=== PATIENT | male | born 1965 | race Caucasian/White ===

== ENCOUNTER 2017-05-27 18:53 | Emergency (ER) | payer OTHER ==
--- NOTE | 2017-05-27 21:10 | DIAGNOSTIC IMAGING REPORT ---
PROCEDURE: CT LUMBAR SPINE W/O CONTRAST INDICATION: PAIN TECHNIQUE: Thin slice axial CT images were obtained through the lumbar spine. Coronal and sagittal reformations were created. COMPARISON: None. FINDINGS: Five lumbar type vertebral bodies are present. Right hemilaminectomy defect at L4-5. No acute or chronic fractures. Moderately prominent osteophytes/syndesmophytes in the lower thoracic and upper lumbar spine. Mild posterior disc osteophyte complexes L2-3, L3-4, and L4-5. L1-2: Mild circumferential disc osteophyte complex. L2-3: Moderate circumferential disc osteophyte complex and moderate facet arthropathy. There is ligamentum flavum hypertrophy and likely a mild central canal stenosis. L3-4: Partial absence of the L3 spinous process. There is probably microdiskectomy change at this level. Moderate circumferential disc bulge, mild facet arthropathy, and possible bilateral foraminal narrowing. L4-5: There is a focal right paracentral disc osteophyte complex superimposed on moderate circumferential disc bulge. The soft tissue portion of this bulge extends into the right lateral recess at the disc level and probably caudal for approximately a centimeter. Disc material and potentially granulation tissue in the lateral recesses bilaterally, right much greater than left and probably causing moderate central canal stenosis. There is a right hemilaminectomy defect. There is probably a moderate right neural foraminal narrowing. L5-S1: Mild posterior disc bulge. Mild facet arthropathy. Partial ankylosis of the anterior sacroiliac joints. Trace L3 on L4 and L2 on L3 retrolisthesis. Mild L3-4 and moderate L4-5 disc height loss. Moderate scar tissue in the dorsal midline soft tissues from L3 to L5. Paraspinal soft tissues are unremarkable. No suspicious density in the central canal to suggest hemorrhage. IMPRESSION: 1. Focal right paracentral disc osteophyte complex, and possibly caudal extrusion of disc at the L4-5 level causing central canal stenosis, bilateral lateral recess narrowing, and right lateral recess obliteration. 2. Probable central canal stenosis at the L2-3 level. 3. Postsurgical changes at L3-4 and L4-5. 4. MRI is recommended. 5. Discussed with Holley Gonzalez in the emergency room.
--- NOTE | 2017-05-27 21:14 | ED NURSING NOTES ---
Clinical Report - Nurses [facility] [address] [place] [address] 05/27/2017 18:54 Patient: MIRTA SANTOS TRIAGE Triage time 19:05 May 27 2017. Acuity: LEVEL 4. Chief Complaint: BACK PAIN. 19:10 05/27/17. Alert. No acute distress. SEPSIS SCREEN: Sepsis Screen. Negative (no infection suspected/documented). BHUMI COMA SCORE: [place] Coma Scale: 15- eyes open spontaneously (4); best verbal response- oriented x 4 (5); best motor response- obeys commands (6). --19:10 Tanya Quiroz 19:10 05/27/17. BP: 152/104. HR: 69. RR: 22. O2 saturation: 97%. Temp: 98.7 F. Pain level now 08/23. --19:10 Tanya Quiroz. Weight: 68 kg stated. Height/Length: 67 inches Per Patient. BMI: 23.5. --19:09 Tanya Quiroz. Medications Lisinopril Oral 20 mg, daily. --19:08 Tanya Quiroz. Medication/allergy information source: the patient and patient's family. --19:10 Tanya Quiroz. History Arrived by private vehicle. Historian: patient. Accompanied by (POEufemia). [facility] physician [facility] Dzmvvibr-Gdzykp-Tvjcwao Navarro). This is a recurrent problem. (today is worse than it's ever been, started about 3 days ago and gets worse). ( Pt has had 3 lamenectomies-the last one was last August. Pt has history of nerve damage, is unable to see regular doctor until June. States that is "throbs" and then feels like fire.). He has had numbness, weakness, tingling,, trouble walking and extremity pain. No history of recent trauma. No fever. Treatment [employer]: Took ibuprofen. (Not taken today.). PAST MEDICAL HX: Tetanus status: up-to-date. Immunizations: up-to-date. SOCIAL HX: Heavy tobacco smoker (cigarette)- 1 pack per day. Occasional alcohol use. History of heavy drug use: marijuana. FALL RISK ASSESSMENT: Fall risk assessment completed. No fall risk identified. NUTRITIONAL RISK ASSESSMENT: The nutritional risk assessment revealed no deficiencies. FUNCTIONAL ASSESSMENT: Functional assessment: no impairments noted. LEARNING NEEDS ASSESSMENT: The learning needs assessment revealed no barriers. SKIN INTEGRITY ASSESSMENT: Skin integrity risk assessment completed. No skin integrity risk identified. --19:10 Tanya Quiroz PAST MEDICAL HX: Hypertension. --20:48 Tanya Quiroz. PROBLEMS: Substance Abuse. Otitis Media. Sinusitis. Bronchitis. URI. Cellulitis. Intervertebral Disc Disease. Sciatica. Lumbar Radiculopathy. Back Injury. Back Pain. Soft Tissue Foreign Body. Hypertension. --20:48 Tanya Quiroz. ADDITIONAL SURGERIES: Fracture Repair. Laminectomy. Peripheral Vascular Surgery. --20:48 Tanya Quiroz. Assessment The patient states feels the same. --19:10 Tanya Quiroz. Interventions ID band on patient. --19:10 Tanya Quiroz. PHYSICAL ASSESSMENT 19:11 05/27/17. Ambulatory to room. Patient gowned. GENERAL / NEURO / PSYCH: Alert. Oriented X 4. Appears in pain. He has had numbness. RESPIRATORY: Respirations not labored. Chest nontender. CVS: Capillary refill less than 2 seconds. GI / : Abdomen soft and nontender. EXTREMITIES: Limited ROM present. BACK: ( "throbbing from my groin to my back on the right side."). Normal inspection of the neck and back. Limited ROM of the back. --19:11 Tanya Quiroz. NURSING PROGRESS NOTES 19:12 05/27/17. The plan of care for this patient has been created. Neuro-vascular extremity check. Reassurance given. Two patient identifiers checked. Call light placed in reach. Side rails up x 1. Bed placed in lowest position. Brakes of bed on. Patient ready for evaluation- chart flagged and ED physician and ADDICTION NURSE notified. --19:12 Tanya Quiroz Patient transported to radiology. (19:52 May 27 2017). --20:00 Tanya Quiroz Patient returned from radiology by stretcher with tech. (20:May 27 2017). --20:02 Tanya Quiroz 20:02 05/27/17. BP: 195/98. HR: 66. RR: 20. O2 saturation: 96% on room air. Pain level now: 08/23. --20:03 Tanya Quiroz 20:23 05/27/2017 Toradol (Ketorolac Tromethamine) IM 60 mg given. Given in the right gluteus jcarlos. Allergies verified and confirmed 5 rights. (Given by ASHLY Bazzi). --20:48 Tanya Quiroz 20:28 05/27/17. Patient ID band checked for patient name: patient confirmed. Instructions provided to collect clean catch urine and patient verbalized understanding. Clean catch urine collected with return of jacob-colored clear urine; sample sent to lab for urinalysis and culture. Specimen labeled in the presence of the patient. --20:28 Rose Mary Lopez, RChely 21:19 05/27/2017 Zofran ODT (Ondansetron) PO Oral Disintegrating Tablets 4 mg given. Allergies verified and confirmed 5 rights. --21:21 Tanya Quiroz 21:21 05/27/2017 Dilaudid (HYDROmorphone HCl PF) IM 2 mg given. Given in the right deltoid. Allergies verified, confirmed 5 rights and sedative warning given to the patient and patient's family. --21:21 Tanya Quiroz 21:22 05/27/17. BP: 145/67. HR: 61. RR: 18. O2 saturation: 96% on room air. Pain level now: 05/23. --21:22 Tanya Quiroz 21:38 05/27/2017 NICODERM Topical Patch/Pad 21 mg. Applied to the right upper back. Allergies verified and confirmed 5 rights. --21:53 Tanya Quiroz 21:41 05/27/2017 Site #1 started via IV in the right forearm with an 18g angiocath, with aseptic technique and good blood return. --21:41 Tanya Quiroz 21:56 05/27/17. Reassessment after medication administered. He is calm and resting quietly. Overall patient status is improved- he states feels better. --21:56 Tanya Quiroz 22:06 05/27/2017 Site #[address] upon admission; patent, no pain and no signs of infection or infiltration; flushes easily. --22:06 Tanya Quiroz. Intake & Output Urine: 350 mL, with return of jacob-colored clear urine. --20:29 Rose Mary Lopez R.N. DISPOSITION / DISCHARGE 21:44 05/27/17. Condition at departure: improved. The goals identified in the patient's plan of care were met. Fall risk assessment completed. Risk factors identified include severe pain. Transferred to [facility]. Summary of care provided to EMS. Report was given to a nurse via a phone call. Report included patient's care, treatment, medications, reviewed medication reconcilliation, and condition (including any recent changes or anticipated changes). All questions were answered. Report was acknowledged and care was transferred. (ASHLY Olivo). Patient's personal items include, All belongings sent with pt in ambulance. --21:44 Tanya Quiroz 22:05 05/27/17. Departure time: 22:May 27 2017. Report was given to an EMT/P in person. Report included patient's care, treatment, medications, reviewed medication reconcilliation, and condition (including any recent changes or anticipated changes). All questions were answered. Report was acknowledged and care was transferred. --22:05 Tanya Quiroz. Locked/Released at 05/27/2017 22:06 by Tanya Quiroz,
--- NOTE | 2017-05-27 21:14 | ED ORDER SUMMARY ---
..... Patient: MIRTA SANTOS OrderSheet [facility] VisitID: [id number] [place] [address] 51y, M Registration Date/Time: 05/27/2017 ORDER SHEET Weight: 68.0 kg (stated) Allergies: GENERAL ORDERS: CT Lumbar Spine wo Cont Urgent (19:44 05/27/2017 HBivens A.R.N.P.) (Ack 19:44 AMcQuoid ER Tech1) (20:05 ASchmuck) CBC w Diff Urgent (19:44 05/27/2017 HBivens A.R.N.P.) (Ack 19:44 AMcQuoid ER Tech1) (19:58 ASchmuck) CMP Urgent (19:44 05/27/2017 HBivens A.R.N.P.) (Ack 19:44 AMcQuoid ER Tech1) (19:58 ASchmuck) Urine Drug Screen Urgent (19:44 05/27/2017 HBivens A.R.N.P.) (Ack 19:44 AMcQuoid ER Tech1) (20:48 ASchmuck) UA-Culture if indicated Urgent (19:44 05/27/2017 HBivens A.R.N.P.) (Ack 19:44 AMcQuoid ER Tech1) (20:48 ASchmuck) MEDICATION ORDERS: Toradol IM 60 mg (NOW) (19:56 05/27/2017 HBivens A.R.N.P.) (Ack 19:58 SRoberts R.N.) (20:48 ASchmuck) Dilaudid IM 2 mg (HIGH ALERT MEDICATION, NOW) (21:07 05/27/2017 HBivens A.R.N.P.) (Ack 21:12 ASchmuck) (21:21 ASchmuck) Zofran ODT PO 4 mg (NOW) (21:07 05/27/2017 HBivens A.R.N.P.) (Ack 21:13 ASchmuck) (21:21 ASchmuck) Nicoderm Topical 21 mg (NOW) (21:53 05/27/2017 ASchmuck verbal order read back to HBivens A.R.N.P.) (21:53 [facility]) IV FLUIDS: ORDER SHEET NOTES: [Electronically signed by Tanya Quiroz (22:06 05/27/2017)] [Electronically signed by Holley GonzalezR.N.PJovanni (23:28 05/27/2017)] [Electronically locked/signed by Tanya Quiroz (22:06 05/27/2017)]
--- NOTE | 2017-05-27 21:14 | ED ORDER SUMMARY ---
..... Patient: MIRTA SANTOS OrderSheet [facility] VisitID: [id number] [place] [address] 51y, M Registration Date/Time: 05/27/2017 ORDER SHEET Weight: 68.0 kg (stated) Allergies: GENERAL ORDERS: CT Lumbar Spine wo Cont Urgent (19:44 05/27/2017 HBivens A.R.N.P.) (Ack 19:44 AMcQuoid ER Tech1) (20:05 ASchmuck) CBC w Diff Urgent (19:44 05/27/2017 HBivens A.R.N.P.) (Ack 19:44 AMcQuoid ER Tech1) (19:58 ASchmuck) CMP Urgent (19:44 05/27/2017 HBivens A.R.N.P.) (Ack 19:44 AMcQuoid ER Tech1) (19:58 ASchmuck) Urine Drug Screen Urgent (19:44 05/27/2017 HBivens A.R.N.P.) (Ack 19:44 AMcQuoid ER Tech1) (20:48 ASchmuck) UA-Culture if indicated Urgent (19:44 05/27/2017 HBivens A.R.N.P.) (Ack 19:44 AMcQuoid ER Tech1) (20:48 ASchmuck) MEDICATION ORDERS: Toradol IM 60 mg (NOW) (19:56 05/27/2017 HBivens A.R.N.P.) (Ack 19:58 SRoberts R.N.) (20:48 ASchmuck) Dilaudid IM 2 mg (HIGH ALERT MEDICATION, NOW) (21:07 05/27/2017 HBivens A.R.N.P.) (Ack 21:12 ASchmuck) (21:21 ASchmuck) Zofran ODT PO 4 mg (NOW) (21:07 05/27/2017 HBivens A.R.N.P.) (Ack 21:13 ASchmuck) (21:21 ASchmuck) Nicoderm Topical 21 mg (NOW) (21:53 05/27/2017 ASchmuck verbal order read back to HBivens A.R.N.P.) (21:53 [facility]) IV FLUIDS: ORDER SHEET NOTES: [Electronically signed by Tanya Quiroz (22:06 05/27/2017)] [Electronically signed by Holley GonzalezR.N.PJovanni (23:28 05/27/2017)] [Electronically locked/signed by Tanya Quiroz (22:06 05/27/2017)]
--- NOTE | 2017-05-27 21:14 | ED CLINICAL REPORT ---
Clinical Report - Physicians/Mid Levels [facility] [address] [place] [address] 05/27/2017 18:54 Patient: MIRTA SANTOS Time Seen: 19:30; initial patient contact, initial documentation, patient care assumed. Arrived- By private vehicle. Historian- patient and spouse. HISTORY OF PRESENT ILLNESS Chief Complaint: BACK PAIN. It is described as being severe and in the area of the mid lumbar spine, lower lumbar spine, sacrum and coccyx. It is described as radiating to the right hip and thigh and to the left hip and thigh. The quality is noted to be "pain" and similar to prior episodes (throbs and feels like it is on fire). Modifying factors- worsened by standing, walking, rotation of the body to the right or left, bending over or lifting. Not relieved by anything. Onset- about 2 - 3 weeks ago and it is still present and worsening. (persistent 2 - 3 days ago). No bladder dysfunction, bowel dysfunction or motor loss. Sensory loss (numbness, tingling, hx of nerve damage). Additional history - can't get into his dr till Jun, last back surgery was Nov of this year, and he has been gradually getting worse since operation, numbness and tingling are worse on L. Patient denies an injury but injury to the head or neck. No other injury. Similar symptoms previously: Chronically, as bad. Recent medical care: Not recently seen/assessed. REVIEW OF SYSTEMS No fever, difficulty with urination, urinary frequency, hematuria or difficulty breathing. No chest pain, abdominal pain, vomiting or diarrhea. All systems otherwise negative, except as recorded above. PAST HISTORY See nurses notes. PROBLEMS: Substance Abuse. Otitis Media. Sinusitis. Bronchitis. URI. Cellulitis. Intervertebral Disc Disease. Sciatica. Lumbar Radiculopathy. Back Injury. Back Pain. Soft Tissue Foreign Body. Hypertension. --20:48 Tanya Quiroz. ADDITIONAL SURGERIES: Fracture Repair. Laminectomy. Peripheral Vascular Surgery. --20:48 Tanya Quiroz. SOCIAL HISTORY Heavy tobacco smoker. Occasional alcohol use. History of occasional drug use: marijuana. No recent travel. Is a local resident. FAMILY HISTORY Negative. ADDITIONAL NOTES The nursing notes have been reviewed with agreement regarding the chief complaint, HPI, ROS, PMH and patient medications and allergies. PHYSICAL EXAM Vital Signs: 05/27/2017 19:10 BP: 152/104. HR: 69. RR: 22. O2 saturation: 97%. Temp: 98.7 F. Have been reviewed as abnormal and appear to be correct. Hypertensive. Heart rate normal. Respiratory rate normal. Temperature normal. Oxygen saturation normal. Appearance: Alert. No acute distress. Anxious. (cussing and writhing around in bed). HEENT: Normal external inspection. Eyes: Pupils equal, round and reactive to light. Neck: Normal inspection. Neck nontender. Painless ROM. CVS: Heart sounds normal. Pulses normal. Respiratory: No respiratory distress. Breath sounds normal. Abdomen: No visible injury. Soft and nontender. Bowel sounds normal. No organomegaly. No mass. Back: Abnormal inspection. Back tenderness present. Mild vertebral point tenderness over the upper, mid and lower lumbar spine. Moderate soft tissue tenderness in the right upper, mid and lower, left upper, mid and lower and upper, mid and lower central lumbar area. No painless ROM. Moderately limited ROM in the back- in the lumbar spine: decreased flexion, right lateral bending, left lateral bending and rotation to the right and left. No muscle spasm in the back or CVA tenderness. Skin: Skin warm and dry. Normal skin color. No rash. Normal skin turgor. Extremities: Extremities exhibit normal ROM. Extremities nontender. Neuro: Oriented X 3. Mood/affect normal. No motor deficit. No sensory deficit. LABS, X-RAYS, AND EKG CT L-Spine: Note- IMPRESSION: 1. Focal right paracentral disc osteophyte complex, and possibly caudal extrusion of disc at the L4-5 level causing central canal stenosis, bilateral lateral recess narrowing, and right lateral recess obliteration. 2. Probable central canal stenosis at the L2-3 level. 3. Postsurgical changes at L3-4 and L4-5. 4. MRI is recommended. 5. Discussed with Holley Gonzalez in the emergency room. Electronically Final signed by:Alis Cohen MD 05/27/2017 9:10:09 PM. The study was interpreted by the radiologist and discussed with the radiologist. Interpretation time: 20:39. Laboratory Tests: UA-Culture if indicated: (MANUEL: 05/27/2017 20:20) ( MsgRcvd 05/27/2017 20:43) Final results Test Result Flag Units (Reference) URINE COLOR YELLOW URINE APPEARANCE CLEAR URINE GLUCOSE NEGATIVE (NEGATIVE) URINE BILIRUBIN NEGATIVE (NEGATIVE) URINE KETONE NEGATIVE (NEGATIVE) URINE SPECIFIC GRAVITY 1.015 (1.010-1.030) URINE PH 7.5 (5.0-8.0) URINE PROTEIN NEGATIVE (NEGATIVE) URINE UROBILINOGEN 0.2 EU/dL (0.2-1.0) URINE NITRITE NEGATIVE (NEGATIVE) URINE BLOOD NEGATIVE (NEGATIVE) URINE LEUK ESTERASE NEGATIVE (NEGATIVE) URINE RBC 0-1 rbc/hpf (0-1) URINE WBC RARE wbc/hpf (0-1) URINE EPITHELIAL CELLS RARE EPI/hpf (0-5) URINE BACTERIA NONE SEEN (NONE SEEN) URINE COMMENT CULT NOT INDICATED URINE CULTURES ARE SET-UP BASED ON THE FOLLOWING CRITERIA:POSITIVE NITRITEPOSITIVE LEUKOCYTE ESTERASEGREATER THAN 10 WHITE BLOOD CELLSMODERATE (2+) OR GREATER BACTERIA CBC w Diff: (MANUEL: 05/27/2017 19:50) ( MsgRcvd 05/27/2017 20:07) Final results Test Result Flag Units (Reference) WHITE BLOOD COUNT 9.1 K/uL (4.5-11.5) RED BLOOD COUNT 4.37 L M/uL (4.50-5.90) HEMOGLOBIN 13.2 L gm/dL (13.5-17.5) HEMATOCRIT 39.0 L % (41.0-53.0) MEAN CELL VOLUME 89 fL (80-100) MEAN CORPUSCULAR HGB 30 pg (26-34) MEAN CORPUSCULAR HGB CONC 34 g/dL (31-37) RED CELL DISTRIBUTION WIDTH 13.7 % (11.6-14.8) PLATELET COUNT 276 K/uL (150-400) NEUTROPHIL % 60.7 % (50-75) LYMPH % 29.6 % (25-40) MONO % 7.8 % (3-14) EOSINOPHIL % 1.3 % (0-4) BASOPHIL % 0.6 % (0-2) CMP: (MANUEL: 05/27/2017 19:50) ( MsgRcvd 05/27/2017 20:25) Final results Test Result Flag Units (Reference) GLUCOSE 94 mg/dL (70-110) BUN 15 mg/dL (7-18) CREATININE 0.8 mg/dL (0.6-1.3) Estimated GFR >60 mL/min Estimated GFR- >60 mL/min Note: Persistent reduction over 3 months in eGFR<60 mL/min/1.73 m2 defines CKD. Patients with eGFR values>=60 mL/min/1.73 m2 may also have CKD if evidence ofpersistent proteinuria. Additional information may be foundat www.kidney.org. SODIUM 143 mmol/L (136-145) POTASSIUM 4.1 mmol/L (3.5-5.1) CHLORIDE 106 mmol/L (98-107) CARBON DIOXIDE 28 mmol/L (21-32) CALCIUM 8.7 mg/dL (8.5-10.1) TOTAL PROTEIN 6.6 g/dL (6.4-8.2) ALBUMIN 3.9 g/dL (3.3-5.0) BILIRUBIN, TOTAL 0.3 mg/dL (0.0-1.0) ALKALINE PHOSPHATASE 68 U/L (46-116) AST (SGOT) 22 U/L (15-37) ALT (SGPT) 28 U/L (12-78) . . PROGRESS AND PROCEDURES Course of Care: pt aware of transfer, started cussing and stating he wasn't going, talking to him 2129. spoke to er Dr Spivey, aware of transfer and to call Dr Dorado when pt arrives, concerns for caudal equina and need for mri 21:35 05/27/17. transfer form completed, pt agreed to transfer ems called by [facility]. 05/27/2017 20:03 BP: 195/98. HR: 66. RR: 20. O2 saturation: 96%. Pain level now: 10/10. Vital Signs: have been reviewed as abnormal and appear to be correct. Hypertensive. Heart rate normal. Respiratory rate normal. Temperature normal. Oxygen saturation normal. Discussed case with health care provider (call placed [phone] Dr Dorado Neuro, pt's dr, do er to er transfer and have er call him when pt arrives). Reviewed test results. Agreed upon treatment plan. Health care provider will see patient in ED. Patient and spouse counseled in person regarding the patient's stable condition, test results and diagnosis. Differential Diagnosis: I considered Musculo-skeletal strain, contusion, disk protrusion, vertebral fracture, transverse-process fracture, facet syndrome, sacroiliac joint strain, sciatica, osteoarthritis, lumbar spondylosis and spinal stenosis as a possible cause of back pain in this patient. This is a partial list of diagnoses considered. Above considerations are based on history, physical exam, reassessment, laboratory data and other information. Differential diagnosis was discussed with patient. Disposition: Benefits, risks and alternatives to transfer explained to patient and family. Transferred to [facility]. 21:29. Condition: good and stable. 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 Lumbar radiculopathy present. Sciatica present on the right and left. Sensory deficit present. (Electronically signed by Holley Gonzalez A.R.N.P. 05/27/2017 23:28)
--- NOTE | 2017-05-27 21:14 | ED NURSING NOTES ---
Clinical Report - Nurses [facility] [address] [place] [address] 05/27/2017 18:54 Patient: MIRTA SANTOS TRIAGE Triage time 19:05 May 27 2017. Acuity: LEVEL 4. Chief Complaint: BACK PAIN. 19:10 05/27/17. Alert. No acute distress. SEPSIS SCREEN: Sepsis Screen. Negative (no infection suspected/documented). BHUMI COMA SCORE: [place] Coma Scale: 15- eyes open spontaneously (4); best verbal response- oriented x 4 (5); best motor response- obeys commands (6). --19:10 Tanya Quiroz 19:10 05/27/17. BP: 152/104. HR: 69. RR: 22. O2 saturation: 97%. Temp: 98.7 F. Pain level now 08/23. --19:10 Tanya Quiroz. Weight: 68 kg stated. Height/Length: 67 inches Per Patient. BMI: 23.5. --19:09 Tanya Quiroz. Medications Lisinopril Oral 20 mg, daily. --19:08 Tanya Quiroz. Medication/allergy information source: the patient and patient's family. --19:10 Tanya Quiroz. History Arrived by private vehicle. Historian: patient. Accompanied by (POEufemia). [facility]). This is a recurrent problem. (today is worse than it's ever been, started about 3 days ago and gets worse). ( Pt has had 3 lamenectomies-the last one was last August. Pt has history of nerve damage, is unable to see regular doctor until June. States that is "throbs" and then feels like fire.). He has had numbness, weakness, tingling,, trouble walking and extremity pain. No history of recent trauma. No fever. 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 (Not taken today.). PAST MEDICAL HX: Tetanus status: up-to-date. Immunizations: up-to-date. SOCIAL HX: Heavy tobacco smoker (cigarette)- 1 pack per day. Occasional alcohol use. History of heavy drug use: marijuana. FALL RISK ASSESSMENT: Fall risk assessment completed. No fall risk identified. NUTRITIONAL RISK ASSESSMENT: The nutritional risk assessment revealed no deficiencies. FUNCTIONAL ASSESSMENT: Functional assessment: no impairments noted. LEARNING NEEDS ASSESSMENT: The learning needs assessment revealed no barriers. SKIN INTEGRITY ASSESSMENT: Skin integrity risk assessment completed. No skin integrity risk identified. --19:10 Tanya Quiroz PAST MEDICAL HX: Hypertension. --20:48 Tanya Quiroz. PROBLEMS: Substance Abuse. Otitis Media. Sinusitis. Bronchitis. URI. Cellulitis. Intervertebral Disc Disease. Sciatica. Lumbar Radiculopathy. Back Injury. Back Pain. Soft Tissue Foreign Body. Hypertension. --20:48 Tanya Quiroz. ADDITIONAL SURGERIES: Fracture Repair. Laminectomy. Peripheral Vascular Surgery. --20:48 Tanya Quiroz. Assessment The patient states feels the same. --19:10 Tanya Quiroz. Interventions ID band on patient. --19:10 Tanya Quiroz. PHYSICAL ASSESSMENT 19:11 05/27/17. Ambulatory to room. Patient gowned. GENERAL / NEURO / PSYCH: Alert. Oriented X 4. Appears in pain. He has had numbness. RESPIRATORY: Respirations not labored. Chest nontender. CVS: Capillary refill less than 2 seconds. GI / : Abdomen soft and nontender. EXTREMITIES: Limited ROM present. BACK: ( "throbbing from my groin to my back on the right side."). Normal inspection of the neck and back. Limited ROM of the back. --19:11 Tanya Quiroz. NURSING PROGRESS NOTES 19:12 05/27/17. The plan of care for this patient has been created. Neuro-vascular extremity check. Reassurance given. Two patient identifiers checked. Call light placed in reach. Side rails up x 1. Bed placed in lowest position. Brakes of bed on. Patient ready for evaluation- chart flagged and ED physician and WILDLIFE BIOLOGY TECHNICIAN notified. --19:12 Tanya Quiroz Patient transported to radiology. (19:52 May 27 2017). --20:00 Tanya Quiroz Patient returned from radiology by stretcher with tech. (20:May 27 2017). --20:02 Tanya Quiroz 20:02 05/27/17. BP: 195/98. HR: 66. RR: 20. O2 saturation: 96% on room air. Pain level now: 08/23. --20:03 Tanya Quiroz 20:23 05/27/2017 Toradol (Ketorolac Tromethamine) IM 60 mg given. Given in the right gluteus jcarlos. Allergies verified and confirmed 5 rights. (Given by ASHLY Bazzi). --20:48 Tanya Quiroz 20:28 05/27/17. Patient ID band checked for patient name: patient confirmed. Instructions provided to collect clean catch urine and patient verbalized understanding. Clean catch urine collected with return of jacob-colored clear urine; sample sent to lab for urinalysis and culture. Specimen labeled in the presence of the patient. --20:28 Rose Mary Lopez, RChely 21:19 05/27/2017 Zofran ODT (Ondansetron) PO Oral Disintegrating Tablets 4 mg given. Allergies verified and confirmed 5 rights. --21:21 Tanya Quiroz 21:21 05/27/2017 Dilaudid (HYDROmorphone HCl PF) IM 2 mg given. Given in the right deltoid. Allergies verified, confirmed 5 rights and sedative warning given to the patient and patient's family. --21:21 Tanya Quiroz 21:22 05/27/17. BP: 145/67. HR: 61. RR: 18. O2 saturation: 96% on room air. Pain level now: 05/23. --21:22 Tanya Quiroz 21:38 05/27/2017 NICODERM Topical Patch/Pad 21 mg. Applied to the right upper back. Allergies verified and confirmed 5 rights. --21:53 Tanya Quiroz 21:41 05/27/2017 Site #1 started via IV in the right forearm with an 18g angiocath, with aseptic technique and good blood return. --21:41 Tanya Quiroz 21:56 05/27/17. Reassessment after medication administered. He is calm and resting quietly. Overall patient status is improved- he states feels better. --21:56 Tanya Quiroz 22:06 05/27/2017 Site #[address] upon admission; patent, no pain and no signs of infection or infiltration; flushes easily. --22:06 Tanya Quiroz. Intake & Output Urine: 350 mL, with return of jacob-colored clear urine. --20:29 Rose Mary Lopez R.N. DISPOSITION / DISCHARGE 21:44 05/27/17. Condition at departure: improved. The goals identified in the patient's plan of care were met. Fall risk assessment completed. Risk factors identified include severe pain. Transferred to [facility]. Summary of care provided to EMS. Report was given to a nurse via a phone call. Report included patient's care, treatment, medications, reviewed medication reconcilliation, and condition (including any recent changes or anticipated changes). All questions were answered. Report was acknowledged and care was transferred. (ASHLY Olivo). Patient's personal items include, All belongings sent with pt in ambulance. --21:44 Tanya Quiroz 22:05 05/27/17. Departure time: 22:May 27 2017. Report was given to an EMT/P in person. Report included patient's care, treatment, medications, reviewed medication reconcilliation, and condition (including any recent changes or anticipated changes). All questions were answered. Report was acknowledged and care was transferred. --22:05 Tanya Quiroz. Locked/Released at 05/27/2017 22:06 by Tanya Quiroz,
--- NOTE | 2017-05-27 23:28 | ED MED RECONCILIATION SUMMARY ---
Patient: MIRTA SANTOS Medication Reconciliation Report [facility] VisitID: [id number] [address] [place] [address] 51y, M Registration Date/Time: 05/27/2017 Weight: 68.0 kg Height/Length: 67 in. BMI: 23.5 ALLERGIES: The patient's Home Medications are listed below: THE FOLLOWING MEDICATIONS NEED TO BE RECONCILED: Lisinopril Oral 20 mg, daily The source(s) of the original Home Medication information: patient's family member patient The following Medications were given to the patient in the Emergency Department: Toradol [IM] IM 60 mg, administered: 05/27/2017 8:23:00 PM Dilaudid [IM] IM 2 mg, administered: 05/27/2017 9:21:00 PM Zofran ODT [PO] PO 4 mg, administered: 05/27/2017 9:19:00 PM NICODERM [TOPICAL] Topical 21 mg, administered: 05/27/2017 9:38:00 PM The following Medications were prescribed to the patient: None.
--- NOTE | 2017-05-27 23:28 | ED MAR SUMMARY ---
..... Medication Administration Record [facility] [address] [place] [address] Patient: MIRTA SANTOS Visit ID: [id number] 51y, M Weight: 68.0 kg Height/Length: 67 in BMI: 23.5 ALLERGIES: Given 20:05/27/2017 Tanya Quiroz, Medication Administered: TORADOL [IM] (KETOROLAC TROMETHAMINE), Dose: 60 mg IM. Medication Ordered: Toradol IM 60 mg (NOW). Given 21:05/27/2017 Tanya Quiroz, Medication Administered: ZOFRAN ODT [PO] (ONDANSETRON), Dose: 4 mg Oral Disintegrating Tablets PO. Medication Ordered: Zofran ODT PO 4 mg (NOW). Given 21:05/27/2017 Tanya Quiroz, Medication Administered: DILAUDID [IM] (HYDROMORPHONE HCL PF), Dose: 2 mg IM. Medication Ordered: Dilaudid IM 2 mg (HIGH ALERT MEDICATION, NOW). Given 21:05/27/2017 Tanya Quiroz, Medication Administered: NICODERM [TOPICAL], Dose: 21 mg Patch/Pad Topical. Medication Ordered: Nicoderm Topical 21 mg (NOW).
--- NOTE | 2017-05-27 23:28 | ED DISCHARGE INSTRUCTIONS ---
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 Lumbar radiculopathy present. Sciatica present on the right and left. Sensory deficit present. (Electronically signed by Holley Gonzalez A.R.N.P. 05/27/2017 23:28)
--- NOTE | 2017-05-27 23:28 | ED MAR SUMMARY ---
..... Medication Administration Record [facility] [address] [place] [address] Patient: MIRTA SANTOS Visit ID: [id number] 51y, M Weight: 68.0 kg Height/Length: 67 in BMI: 23.5 ALLERGIES: Given 20:05/27/2017 Tanya Quiroz, Medication Administered: TORADOL [IM] (KETOROLAC TROMETHAMINE), Dose: 60 mg IM. Medication Ordered: Toradol IM 60 mg (NOW). Given 21:05/27/2017 Tanya Quiroz, Medication Administered: ZOFRAN ODT [PO] (ONDANSETRON), Dose: 4 mg Oral Disintegrating Tablets PO. Medication Ordered: Zofran ODT PO 4 mg (NOW). Given 21:05/27/2017 Tanya Quiroz, Medication Administered: DILAUDID [IM] (HYDROMORPHONE HCL PF), Dose: 2 mg IM. Medication Ordered: Dilaudid IM 2 mg (HIGH ALERT MEDICATION, NOW). Given 21:05/27/2017 Tanya Quiroz, Medication Administered: NICODERM [TOPICAL], Dose: 21 mg Patch/Pad Topical. Medication Ordered: Nicoderm Topical 21 mg (NOW).
--- NOTE | 2017-05-27 23:28 | ED DISCHARGE INSTRUCTIONS ---
Patient: MIRTA SANTOS General Instructions [facility] VisitID: [id number] [address] [place] [address] 51y, M Registration Date/Time: 05/27/2017 Chronic nontraumatic lumbar back pain associated with lumbar spondylolysis; degenerative joint disease of the lumbar spine; degenerative disc disease of the lumbar spine; disc herniation in the lumbar spine; spinal stenosis in the lumbar spine. Lumbar radiculopathy present. Sciatica present on the right and left. Sensory deficit present. (Electronically signed by Holley Gonzalez A.R.N.P. 05/27/2017 23:28)
--- NOTE | 2017-05-27 23:28 | ED MED RECONCILIATION SUMMARY ---
Patient: MIRTA SANTOS Medication Reconciliation Report [facility] VisitID: [id number] [address] [place] [address] 51y, M Registration Date/Time: 05/27/2017 Weight: 68.0 kg Height/Length: 67 in. BMI: 23.5 ALLERGIES: The patient's Home Medications are listed below: THE FOLLOWING MEDICATIONS NEED TO BE RECONCILED: Lisinopril Oral 20 mg, daily The source(s) of the original Home Medication information: patient's family member patient The following Medications were given to the patient in the Emergency Department: Toradol [IM] IM 60 mg, administered: 05/27/2017 8:23:00 PM Dilaudid [IM] IM 2 mg, administered: 05/27/2017 9:21:00 PM Zofran ODT [PO] PO 4 mg, administered: 05/27/2017 9:19:00 PM NICODERM [TOPICAL] Topical 21 mg, administered: 05/27/2017 9:38:00 PM The following Medications were prescribed to the patient: None.
== END 2017-05-27 22:04 | disposition short-term general hospital (02) ==
LOC: ED SRH 18:53
DX: M51.16 Intervertebral disc disorders with radiculopathy, lumbar region (principal); M43.06 Spondylolysis, lumbar region; M47.896 Other spondylosis, lumbar region; M48.06 Spinal stenosis, lumbar region; G89.29 Other chronic pain; Z72.0 Tobacco use
CPT/HCPCS: 90004; 90100; 92760; 92761; 92762; 92763; 92764; 92765; 92766; 92767; 95059